=== PATIENT | male | born 1955 | race Caucasian/White ===

== ENCOUNTER 2019-08-21 14:27 | Emergency (ER) | payer OTHER ==
[~2019-08-21] VITALS: Ht 180.3 cm; Wt 86.2 kg
[2019-08-21] MEDS ORDERED: LIPITOR 20 MG T20 M1 PO (14:46)
[2019-08-21 15:58] VITALS: BP 136/80
== END 2019-08-21 15:58 | disposition home or self-care (01) ==
LOC: M.ERS 14:27
DX: S51.812A Laceration without foreign body of left forearm, initial encounter (principal); E78.00 Pure hypercholesterolemia, unspecified; W27.0XXA Contact with workbench tool, initial encounter; Y93.89 Activity, other specified; Y92.89 Other specified places as the place of occurrence of the external cause; Y99.8 Other external cause status